=== PATIENT | female | born 1990 | race American Indian/Alaskan Native ===

== ENCOUNTER 2020-12-30 21:47 | Inpatient (IN) | payer OTHER ==
[2020-12-30 23:13] LABS: Basophils % (Auto) 0.1 % (0.0-1.8); Hematocrit 33.2 % (30.3-42.9); Hemoglobin 10.2 gm/dl (10.1-14.3); Lymphocytes % (Auto) 14.1 % (13.4-35.0); Mean Corpuscular HGB Conc 31 % (30-34); Monocytes # (Auto) 0.2 K/mm3 (0.0-0.8); Monocytes % (Auto) 2.7 % (0.0-7.3); Platelet Count 246 K/mm3 (140-440)
[2020-12-30 23:14] LABS: Mean Corpuscular Volume 64 fl (79-97); Red Cell Distribution Width 20.7 % (13.2-15.2)
[2020-12-30] MEDS ORDERED: ACETAMINOPHEN 500 MG TAB PO ONE (23:17)
--- NOTE | 2020-12-30 23:21 | Emergency Department Report ---
ED General Adult HPI - General Chief complaint: Nausea/Vomiting/Diarrhea Stated complaint: FEVER;CHILLS;SOB;BODY ACHES Time Seen by Provider: 12/30/20 22:44 Source: patient Mode of arrival: Ambulatory Limitations: No Limitations - History of Present Illness Initial comments: 30-year-old female, no past medical history, presents to ED with 1 week history fever, vomiting, diarrhea, fatigue. Patient reports she developed shortness of breath 4 days ago. She reports associated slight cough, body aches, and slight loss of smell. Patient states she became dizzy and passed out 2 days ago. Patient states she was tested for COVID-19 2 weeks ago because her was feeling sick. Patient states 2 weeks ago they both tested negative. Patient has not been tested again since the onset of her symptoms. She states her is no longer symptomatic. She reports no known contact with anyone who has tested positive for COVID-19. -: week(s) (1) Consistency: constant Improves with: none Worsens with: none Associated Symptoms: cough, fever/chills, nausea/vomiting, shortness of breath, syncope, weakness. denies: chest pain - Related Data Home Medications Medication Instructions Recorded Confirmed Last Taken Sertraline [Zoloft] 100 mg PO QDAY 12/31/20 12/31/20 Unknown Allergies Allergy/AdvReac Type Severity Reaction Status Date / Time No Known Allergies Allergy Verified 12/31/20 02:45 ED Review of Systems ROS: Stated complaint: FEVER;CHILLS;SOB;BODY ACHES Other details as noted in HPI Comment: All other systems reviewed and negative Constitutional: fever ENT: other (Slight loss of smell reported) Respiratory: cough, shortness of breath Cardiovascular: denies: chest pain Gastrointestinal: vomiting, diarrhea Musculoskeletal: myalgia ED Past Medical Hx - Past Medical History Previous Medical History?: Yes Additional medical history: Hyperthyroidism, iodine radiation treatment - Surgical History Past Surgical History?: No - Social History Smoking Status: Never Smoker Substance Use Type: None - Medications Home Medications: Home Medications Medication Instructions Recorded Confirmed Last Taken Type Sertraline [Zoloft] 100 mg PO QDAY 12/31/20 12/31/20 Unknown History ED Physical Exam - General Limitations: No Limitations General appearance: alert, in no apparent distress, obese - Head Head exam: Present: atraumatic, normocephalic - Eye Eye exam: Present: normal appearance, EOMI - ENT ENT exam: Present: mucous membranes moist - Neck Neck exam: Present: normal inspection - Respiratory Respiratory exam: Present: normal lung sounds bilaterally. Absent: respiratory distress - Cardiovascular Cardiovascular Exam: Present: normal rhythm, tachycardia - GI/Abdominal GI/Abdominal exam: Present: soft. Absent: distended, tenderness - Extremities Exam Extremities exam: Present: normal inspection - Neurological Exam Neurological exam: Present: alert, oriented X3 - Psychiatric Psychiatric exam: Present: normal affect, normal mood - Skin Skin exam: Present: warm, dry, intact, normal color ED Course Vital Signs 12/30/20 12/30/20 12/31/20 21:53 23:40 00:40 Temperature 103.0 F H Pulse Rate 110 H Respiratory 16 16 16 Rate Blood Pressure 119/61 Blood Pressure [Left] O2 Sat by Pulse 94 Oximetry 12/31/20 02:24 Temperature 98.9 F Pulse Rate 114 H Respiratory 24 Rate Blood Pressure Blood Pressure 114/62 [Left] O2 Sat by Pulse 100 Oximetry - Reevaluation(s) Reevaluation #1: 12/31/20 00:10 Pt 91% on RA. O2 sats drop to 86% w/ ambulation. ED Medical Decision Making - Lab Data Result diagrams: 12/30/20 22:38 12/31/20 00:49 - EKG Data -: EKG Interpreted by Mn EKG shows normal: sinus rhythm, axis, intervals, QRS complexes, ST-T waves Rate: tachycardia (rate 126) - EKG Data Interpretation: no acute changes - Radiology Data Radiology results: report reviewed, image reviewed - Medical Decision Making 30-year-old female presents to ED with Covid-like symptoms. Patient complaining of shortness of breath. O2 sats 91% on room air. Saturations dropped to 86% with ambulation. Chest x-ray shows bilateral infiltrates. CTA chest is negative for PE. Blood cultures drawn. Patient given Rocephin, azithromycin, and Decadron. Patient will be admitted to hospitalist, Dr. Alfonso, for further management. - Differential Diagnosis COVID-19, pneumonia, PE Critical Care Time: Yes Critical care time in (mins) excluding proc time.: 35 Critical care attestation.: If time is entered above; I have spent that time in minutes in the direct care of this critically ill patient, excluding procedure time. Critical Care Time: 35 min ED Disposition Clinical Impression: Pneumonia, Sepsis, Acute respiratory failure with hypoxia, Suspected 2019 novel coronavirus infection Disposition: 09 OP ADMIT IP TO THIS HOSP Is pt being admited?: Yes Condition: Stable Time of Disposition: 01:57
[2020-12-30 23:24] LABS: Alanine Aminotransferase 12 units/L (7-56); Albumin 3.7 g/dL (3.9-5); BUN/Creatinine Ratio 8; Blood Urea Nitrogen 7 mg/dL (7-17); Calcium 7.7 mg/dL (8.4-10.2); Hemolysis Index 18
--- NOTE | 2020-12-31 00:12 | XRay Report ---
CHEST 1 VIEW 12/30/2020 11:36 PM INDICATION / CLINICAL INFORMATION: sob. COMPARISON: None available. FINDINGS: SUPPORT DEVICES: None. HEART / MEDIASTINUM: No significant abnormality. LUNGS / PLEURA: Moderate bilateral multifocal airspace consolidation No pneumothorax. ADDITIONAL FINDINGS: No significant additional findings. IMPRESSION: 1. Bilateral pneumonia Signer Name: Kit Avalos MD Signed: 12/31/2020 12:07 AM Workstation Name: [id number]
[2020-12-31] MEDS ORDERED: cefTRIAXone/NS 1 GM/50 ML 1 GM/50 ML BAG IV ONE (00:30)
[2020-12-31] MEDS ORDERED: AZITHROMYCIN 250 MG TAB PO ONE (00:30)
[2020-12-31] MEDS ORDERED: DEXAMETHASONE 4 MG TAB PO ONE (00:32)
[2020-12-31 00:42] LABS: Partial Thromboplastin Time 28.3 Sec. (24.2-36.6)
[2020-12-31 01:22] LABS: C-Reactive Protein 4.4 mg/dL (0.00-1.30)
--- NOTE | 2020-12-31 01:54 | Cat Scan Report ---
CTA CHEST WITH IV CONTRAST INDICATION: SOB, suspected COVID. TECHNIQUE: Axial CT images were obtained through the chest after injection of 100 cc Omni 350 IV contrast. 3 vadim ne MIP reconstructions were produced. All CT scans at this location are performed using CT dose reduc tion for ALARA by means of automated exposure control. COMPARISON: None available. FINDINGS: Study limited secondary to enlarged body habitus, motion artifact. PULMONARY ARTERIES: No pulmonary emboli. THORACIC AORTA: No acute abnormality. HEART: Normal. CORONARY ARTERIES: No significant calcification. PLEURA: No pleural effusion. No pneumothorax. LYMPH NODES: No significant adenopathy. LUNGS: Moderate multifocal patchy parenchymal disease characteristic for Covid pneumonia ADDITIONAL FINDINGS: None. UPPER ABDOMEN: No acute findings. SKELETAL STRUCTURES: No significant osseous abnormality. IMPRESSION: 1. No CT evidence for pulmonary embolism. 2. Moderate bilateral Covid pneumonia Signer Name: Kit Avalos MD Signed: 12/31/2020 1:50 AM Workstation Name: [id number]
[2020-12-31] MEDS ORDERED: ONDANSETRON 4 MG/2 ML INJ IV PRN (02:41)
--- NOTE | 2020-12-31 02:46 | History and Physical Report ---
History of Present Illness Date of examination: 12/31/20 Date of admission: 12/31/20 01:58 Chief complaint: Nausea vomiting diarrhea Shortness of breath History of present illness: 30-year-old female with no significant past medical history was brought to the emergency room because of 1 week history fever, vomiting, diarrhea, fatigue. Patient also complaining of shortness of breath 4 days ago. She reports associated slight cough, body aches, and slight loss of smell. Patient states she became dizzy and passed out 2 days ago. Patient states she was tested for COVID-19 2 weeks ago because her was feeling sick. Patient states 2 weeks ago they both tested negative. Patient has not been tested again since the onset of her symptoms. She states her is no longer symptomatic. She reports no known contact with anyone who has tested positive for COVID-19. In the emergency room patient chest x-ray shows bilateral pneumonia Medications and Allergies Allergies Allergy/AdvReac Type Severity Reaction Status Date / Time No Known Allergies Allergy Unverified 12/30/20 22:05 Active Meds: Active Medications Dexamethasone (Dexamethasone 4 Mg/Ml Vial) 6 mg IV DAILY RAO Famotidine (Famotidine 20 Mg Tab) 20 mg PO BID RAO Heparin Sodium (Porcine) (Heparin 5,000 Unit/1 Ml Vial) 5,000 unit SUB-Q Q8HR [facility]O Ceftriaxone Sodium (Rocephin/Ns 2 Gm/100 Ml) 2 gm in 100 mls @ 200 mls/hr IV Q24H [facility]; Protocol Azithromycin (Zithromax/Ns) 500 mg in 250 mls @ 250 mls/hr IV Q24H [facility]; Protocol Ondansetron HCl (Ondansetron 4 Mg/2 Ml Inj) 4 mg IV Q8H PRN PRN Reason: Nausea And Vomiting Review of Systems Respiratory: cough, shortness of breath Gastrointestinal: nausea, vomiting, diarrhea Exam - Constitutional Vitals: Temp Pulse Resp BP Pulse Ox 98.9 F 114 H 24 114/62 100 12/31/20 02:24 12/31/20 02:24 12/31/20 02:24 12/31/20 02:24 12/31/20 02:24 General appearance: Present: no acute distress, well-nourished - EENT Eyes: Present: PERRL ENT: hearing intact, clear oral mucosa - Neck Neck: Present: supple, normal ROM - Respiratory Respiratory effort: normal Respiratory: bilateral: diminished - Cardiovascular Heart Sounds: Present: S1 & S2. Absent: rub, click - Extremities Extremities: pulses symmetrical, No edema Peripheral Pulses: within normal limits - Abdominal General gastrointestinal: Present: soft, non-tender, non-distended, normal bowel sounds Female genitourinary: Present: normal - Integumentary Integumentary: Present: clear, warm, dry - Musculoskeletal Musculoskeletal: gait normal, strength equal bilaterally - Psychiatric Psychiatric: appropriate mood/affect, intact judgment & insight - Neurologic Neurologic: CNII-XII intact, moves all extremities Results - Labs CBC & Chem 7: 12/30/20 22:38 12/31/20 00:49 Labs: Laboratory Last Values WBC 6.9 K/mm3 (4.5-11.0) 12/30/20 22:38 RBC 5.20 M/mm3 (3.65-5.03) H 12/30/20 22:38 Hgb 10.2 gm/dl (10.1-14.3) 12/30/20 22:38 Hct 33.2 % (30.3-42.9) 12/30/20 22:38 MCV 64 fl (79-97) L 12/30/20 22:38 MCH 20 pg (28-32) L 12/30/20 22:38 MCHC 31 % (30-34) 12/30/20 22:38 RDW 20.7 % (13.2-15.2) H 12/30/20 22:38 Plt Count 246 K/mm3 (140-440) 12/30/20 22:38 Lymph % (Auto) 14.1 % (13.4-35.0) 12/30/20 22:38 [place] % (Auto) 2.7 % (0.0-7.3) 12/30/20 22:38 Eos % (Auto) 0.0 % (0.0-4.3) 12/30/20 22:38 Baso % (Auto) 0.1 % (0.0-1.8) 12/30/20 22:38 Lymph # (Auto) 1.0 K/mm3 (1.2-5.4) L 12/30/20 22:38 [place] # (Auto) 0.2 K/mm3 (0.0-0.8) 12/30/20 22:38 Eos # (Auto) 0.0 K/mm3 (0.0-0.4) 12/30/20 22:38 Baso # (Auto) 0.0 K/mm3 (0.0-0.1) 12/30/20 22:38 Seg Neutrophils % 83.1 % (40.0-70.0) H 12/30/20 22:38 Seg Neutrophils # 5.8 K/mm3 (1.8-7.7) 12/30/20 22:38 PT 13.0 Sec. (12.2-14.9) 12/31/20 00:04 INR 1.00 (0.87-1.13) 12/31/20 00:04 APTT 28.3 Sec. (24.2-36.6) 12/31/20 00:04 D-Dimer 485.77 ng/mlDDU (0-234) H 12/31/20 00:49 Sodium 135 mmol/L (137-145) L 12/30/20 22:38 Potassium 4.1 mmol/L (3.6-5.0) 12/30/20 22:38 Chloride 98.8 mmol/L (98-107) 12/30/20 22:38 Carbon Dioxide 23 mmol/L (22-30) 12/30/20 22:38 Anion Gap 17 mmol/L 12/30/20 22:38 BUN 7 mg/dL (7-17) 12/30/20 22:38 Creatinine 0.9 mg/dL (0.6-1.2) 12/30/20 22:38 Estimated GFR > 60 ml/min 12/30/20 22:38 BUN/Creatinine Ratio 8 % 12/30/20 22:38 Glucose 133 mg/dL (65-100) H 12/31/20 00:49 Lactic Acid 1.20 mmol/L (0.7-2.0) 12/31/20 00:49 Calcium 7.7 mg/dL (8.4-10.2) L 12/30/20 22:38 Ferritin 42.5 ng/mL (10.0-200.0) 12/31/20 00:49 Total Bilirubin 0.20 mg/dL (0.1-1.2) 12/30/20 22:38 AST 29 units/L (5-40) 12/30/20 22:38 ALT 12 units/L (7-56) 12/30/20 22:38 Alkaline Phosphatase 65 units/L (35-129) 12/30/20 22:38 Lactate Dehydrogenase 286 units/L (91-180) H 12/31/20 00:49 C-Reactive Protein 4.40 mg/dL (0.00-1.30) H 12/31/20 00:49 Total Protein 7.5 g/dL (6.3-8.2) 12/30/20 22:38 Albumin 3.7 g/dL (3.9-5) L 12/30/20 22:38 Albumin/Globulin Ratio 1.0 % 12/30/20 22:38 Lipase 21 units/L (13-60) 12/30/20 22:38 HCG, Qual Negative (Negative) 12/30/20 22:38 Microbiology: Microbiology 12/31/20 00:49 Peripheral/Venous Blood Culture - Preliminary Culture in Progress 12/31/20 00:38 Peripheral/Venous Blood Culture - Preliminary Culture in Progress - Imaging and Cardiology Chest x-ray: image reviewed CT scan - chest: image reviewed Assessment and Plan - Patient Problems (1) Suspected 2019 novel coronavirus infection Current Visit: Yes Status: Acute Plan to address problem: Admit the patient to the medical floor telemetry. Put the patient on isolation. Rocephin 1 g IV daily and Zithromax 500 mg IV daily. DuoNeb by nebulizer every 4 hours as needed. Decadron 6 mg IV daily. Will consult ID for further evaluation and treatment. We will follow the Covid inflammatory marker. Blood cultures sputum culture. Recheck CBC BMP in the morning. Heparin 5000 units subcu every 8 hours for DVT prophylaxis and Pepcid 20 mg p.o. twice daily for GI prophylaxis. Patient is a full code (2) Pneumonia Current Visit: Yes Status: Acute Plan to address problem: Oxygen by nasal cannula 3 L/min. Rocephin 1 g IV daily and Zithromax 500 mg IV daily. DuoNeb by nebulizer every 4 hours as needed. Decadron 6 mg IV daily. Will consult ID for further evaluation and treatment. We will follow the Covid inflammatory marker. Blood cultures sputum culture. Recheck CBC BMP in the morning. (3) Nausea vomiting and diarrhea Current Visit: Yes Status: Acute Plan to address problem: Pepcid 20 mg p.o. twice daily. Zofran 4 mg IV every 6 hours as needed. We will monitor the patient closely. (4) DVT prophylaxis Current Visit: Yes Status: Acute Plan to address problem: Heparin 5000 units subcu every 8 hours for DVT prophylaxis.
[2020-12-31 04:14] LABS: Bacteria,Urine 1+ /HPF (Negative); Bilirubin,Urine NEG (Negative); Blood,Urine LG (Negative); Color,Urine Yellow (Yellow); Protein,Urine <15 mg/dL mg/dL (Negative); Urobilinogen,Urine < 2.0 mg/dL (<2.0)
[2020-12-31] MEDS: HEPARIN 5,000 UNIT/1 ML VIAL SUB-Q SCH ×4 (05:16→21:11)
[2020-12-31] MEDS: FAMOTIDINE 20 MG TAB PO SCH ×2 (09:00→21:11)
--- NOTE | 2020-12-31 09:58 | Progress Note ---
Hospitalist Physical - Constitutional Vitals: Temp Pulse Resp BP Pulse Ox 98.1 F 114 H 20 127/71 93 12/31/20 04:49 12/31/20 04:49 12/31/20 04:49 12/31/20 04:49 12/31/20 04:49 General appearance: Present: no acute distress, well-nourished Results - Labs CBC & Chem 7: 12/30/20 22:38 12/31/20 00:49 Labs: Laboratory Last Values WBC 6.9 K/mm3 (4.5-11.0) 12/30/20 22:38 RBC 5.20 M/mm3 (3.65-5.03) H 12/30/20 22:38 Hgb 10.2 gm/dl (10.1-14.3) 12/30/20 22:38 Hct 33.2 % (30.3-42.9) 12/30/20 22:38 MCV 64 fl (79-97) L 12/30/20 22:38 MCH 20 pg (28-32) L 12/30/20 22:38 MCHC 31 % (30-34) 12/30/20 22:38 RDW 20.7 % (13.2-15.2) H 12/30/20 22:38 Plt Count 246 K/mm3 (140-440) 12/30/20 22:38 Lymph % (Auto) 14.1 % (13.4-35.0) 12/30/20 22:38 [place] % (Auto) 2.7 % (0.0-7.3) 12/30/20 22:38 Eos % (Auto) 0.0 % (0.0-4.3) 12/30/20 22:38 Baso % (Auto) 0.1 % (0.0-1.8) 12/30/20 22:38 Lymph # (Auto) 1.0 K/mm3 (1.2-5.4) L 12/30/20 22:38 [place] # (Auto) 0.2 K/mm3 (0.0-0.8) 12/30/20 22:38 Eos # (Auto) 0.0 K/mm3 (0.0-0.4) 12/30/20 22:38 Baso # (Auto) 0.0 K/mm3 (0.0-0.1) 12/30/20 22:38 Seg Neutrophils % 83.1 % (40.0-70.0) H 12/30/20 22:38 Seg Neutrophils # 5.8 K/mm3 (1.8-7.7) 12/30/20 22:38 PT 13.0 Sec. (12.2-14.9) 12/31/20 00:04 INR 1.00 (0.87-1.13) 12/31/20 00:04 APTT 28.3 Sec. (24.2-36.6) 12/31/20 00:04 D-Dimer 485.77 ng/mlDDU (0-234) H 12/31/20 00:49 Sodium 135 mmol/L (137-145) L 12/30/20 22:38 Potassium 4.1 mmol/L (3.6-5.0) 12/30/20 22:38 Chloride 98.8 mmol/L (98-107) 12/30/20 22:38 Carbon Dioxide 23 mmol/L (22-30) 12/30/20 22:38 Anion Gap 17 mmol/L 12/30/20 22:38 BUN 7 mg/dL (7-17) 12/30/20 22:38 Creatinine 0.9 mg/dL (0.6-1.2) 12/30/20 22:38 Estimated GFR > 60 ml/min 12/30/20 22:38 BUN/Creatinine Ratio 8 % 12/30/20 22:38 Glucose 133 mg/dL (65-100) H 12/31/20 00:49 Lactic Acid 1.20 mmol/L (0.7-2.0) 12/31/20 00:49 Calcium 7.7 mg/dL (8.4-10.2) L 12/30/20 22:38 Ferritin 42.5 ng/mL (10.0-200.0) 12/31/20 00:49 Total Bilirubin 0.20 mg/dL (0.1-1.2) 12/30/20 22:38 AST 29 units/L (5-40) 12/30/20 22:38 ALT 12 units/L (7-56) 12/30/20 22:38 Alkaline Phosphatase 65 units/L (35-129) 12/30/20 22:38 Lactate Dehydrogenase 286 units/L (91-180) H 12/31/20 00:49 C-Reactive Protein 4.40 mg/dL (0.00-1.30) H 12/31/20 00:49 Total Protein 7.5 g/dL (6.3-8.2) 12/30/20 22:38 Albumin 3.7 g/dL (3.9-5) L 12/30/20 22:38 Albumin/Globulin Ratio 1.0 % 12/30/20 22:38 Lipase 21 units/L (13-60) 12/30/20 22:38 HCG, Qual Negative (Negative) 12/30/20 22:38 Urine Color Yellow (Yellow) 12/30/20 Unknown Urine Turbidity Slightly-cloudy (Clear) 12/30/20 Unknown Urine pH 6.0 (5.0-7.0) 12/30/20 Unknown Ur Specific [place] 1.054 (1.003-1.030) H 12/30/20 Unknown Urine Protein <15 mg/dl mg/dL (Negative) 12/30/20 Unknown Urine Glucose (UA) Neg mg/dL (Negative) 12/30/20 Unknown Urine Ketones Neg mg/dL (Negative) 12/30/20 Unknown Urine Blood Lg (Negative) 12/30/20 Unknown Urine Nitrite Neg (Negative) 12/30/20 Unknown Urine Bilirubin Neg (Negative) 12/30/20 Unknown Urine Urobilinogen < 2.0 mg/dL (<2.0) 12/30/20 Unknown Ur Leukocyte Esterase Neg (Negative) 12/30/20 Unknown Urine WBC (Auto) 3.0 /HPF (0.0-6.0) 12/30/20 Unknown Urine RBC (Auto) 9.0 /HPF (0.0-6.0) 12/30/20 Unknown U Epithel Cells (Auto) 11.0 /HPF (0-13.0) 12/30/20 Unknown Urine Bacteria (Auto) 1+ /HPF (Negative) 12/30/20 Unknown Microbiology: Microbiology 12/31/20 00:49 Peripheral/Venous Blood Culture - Preliminary Culture in Progress 12/31/20 00:38 Peripheral/Venous Blood Culture - Preliminary Culture in Progress Renae/IV: Voiding Method Toilet Active Medications - Current Medications Current Medications: Generic Name Dose Route Start Last Admin Trade Name Freq PRN Reason Stop Dose Admin Dexamethasone 6 mg 12/31/20 22:00 Dexamethasone 4 Mg/Ml Vial IV 01/09/21 22:01 DAILY@2200 [facility] Famotidine 20 mg 12/31/20 10:00 12/31/20 09:00 Famotidine 20 Mg Tab PO 20 mg BID RAO Administration Heparin Sodium (Porcine) 5,000 unit 12/31/20 06:00 12/31/20 05:30 Heparin 5,000 Unit/1 Ml Vial SUB-Q 5,000 unit Q8HR [facility] Administration Ceftriaxone Sodium 2 gm in 100 mls @ 200 mls/hr 12/31/20 22:00 Rocephin/Ns 2 Gm/100 Ml IV Q24H [facility] Protocol Azithromycin 500 mg in 250 mls @ 250 mls/hr 12/31/20 22:00 Zithromax/Ns IV Q24H [facility] Protocol Ondansetron HCl 4 mg 12/31/20 02:41 Ondansetron 4 Mg/2 Ml Inj IV Q8H PRN Nausea And Vomiting Sertraline HCl 100 mg 12/31/20 10:00 Sertraline 100 Mg Tab PO QDAY [facility]
--- NOTE | 2020-12-31 11:14 | Event Note ---
Date: 12/31/20 Patient seen and examined, still with shortness of breath, generalized body pain. Will continue current therapy, await covid testing. start home zoloft med, patient confirms. will check room air oxygen
[2020-12-31] MEDS ORDERED: FLU VACC QUAD 2020-2021 (6 months +)/PF 60 0.5 ML SYRINGE IM ONE (12:00)
[2020-12-31] MEDS: SERTRALINE 100 MG TAB PO SCH (12:37)
--- NOTE | 2020-12-31 15:07 | Consultation ---
History of Present Illness - Reason for Consult Consult date: 12/31/20 - History of Present Illness 30-year-old female no past medical history came to the emergency room complaining of fevers, GI upset, fatigue. This began approximately a week prior to admission and is associated with 4 days of shortness of breath. She also complains of cough, myalgias, anosmia. She notes a negative Covid test 2 weeks prior, and that her was symptomatic but also tested negative. Febrile on admission to 103 with a white count of 6.9. Normal renal function. Covid testing pending. Blood cultures no growth to date. Currently on ceftriaxone and azithromycin. Imaging personally reviewed: Chest CTA: No evidence of pulmonary embolism, moderate bilateral pneumonia. Review of systems: Deferred due to PPE conservation strategy. Past History Past Medical History: No medical history Past Surgical History: No surgical history Social history: no significant social history Family history: no significant family history Medications and Allergies Allergies Allergy/AdvReac Type Severity Reaction Status Date / Time No Known Allergies Allergy Verified 12/31/20 02:45 Home Medications Medication Instructions Recorded Confirmed Last Taken Type Sertraline [Zoloft] 100 mg PO QDAY 12/31/20 12/31/20 Unknown History Active Meds: Active Medications Dexamethasone (Dexamethasone 4 Mg/Ml Vial) 6 mg IV DAILY@2200 [facility] Stop: 01/09/21 22:01 Famotidine (Famotidine 20 Mg Tab) 20 mg PO BID [facility] Last Admin: 12/31/20 09:00 Dose: 20 mg Documented by: Heparin Sodium (Porcine) (Heparin 5,000 Unit/1 Ml Vial) 5,000 unit SUB-Q Q8HR [facility] Last Admin: 12/31/20 05:30 Dose: 5,000 unit Documented by: Ceftriaxone Sodium (Rocephin/Ns 2 Gm/100 Ml) 2 gm in 100 mls @ 200 mls/hr IV Q24H [facility]; Protocol Azithromycin (Zithromax/Ns) 500 mg in 250 mls @ 250 mls/hr IV Q24H [facility]; Pro tocol Ondansetron HCl (Ondansetron 4 Mg/2 Ml Inj) 4 mg IV Q8H PRN PRN Reason: Nausea And Vomiting Sertraline HCl (Sertraline 100 Mg Tab) 100 mg PO QDAY [facility] Last Admin: 12/31/20 12:37 Dose: 100 mg Documented by: Physical Examination - Physical Exam Narrative exam: Physical exam deferred due to PPE conservation strategy. Please refer to primary team's note. - Constitutional Vitals: Vital Signs Temp Pulse Resp BP Pulse Ox 99.3 F 116 H 16 127/79 94 12/31/20 12:05 12/31/20 12:05 12/31/20 12:05 12/31/20 12:05 12/31/20 12:05 Temperature -Last 24 Hours Temperature 99.3 F Temperature 98.1 F Temperature 98.9 F Temperature 103.0 F Results - Labs CBC & Chem 7: 12/30/20 22:38 12/31/20 00:49 Labs: Abnormal lab results 12/30/20 12/30/20 12/30/20 Range/Units 22:38 22:38 Unknown RBC 5.20 H (3.65-5.03) M/mm3 MCV 64 L (79-97) fl MCH 20 L (28-32) pg RDW 20.7 H (13.2-15.2) % Lymph # (Auto) 1.0 L (1.2-5.4) K/mm3 Seg Neutrophils % 83.1 H (40.0-70.0) % D-Dimer (0-234) ng/mlDDU Sodium 135 L (137-145) mmol/L Glucose 142 H (65-100) mg/dL Calcium 7.7 L (8.4-10.2) mg/dL Lactate Dehydrogenase (91-180) units/L C-Reactive Protein (0.00-1.30) mg/dL Albumin 3.7 L (3.9-5) g/dL Ur Specific [place] 1.054 H (1.003-1.030) Coronavirus (PCR) (Negative) 12/31/20 12/31/20 12/31/20 Range/Units 00:04 00:49 00:49 RBC (3.65-5.03) M/mm3 MCV (79-97) fl MCH (28-32) pg RDW (13.2-15.2) % Lymph # (Auto) (1.2-5.4) K/mm3 Seg Neutrophils % (40.0-70.0) % D-Dimer 458.81 H 485.77 H (0-234) ng/mlDDU Sodium (137-145) mmol/L Glucose 133 H (65-100) mg/dL Calcium (8.4-10.2) mg/dL Lactate Dehydrogenase 286 H (91-180) units/L C-Reactive Protein 4.40 H (0.00-1.30) mg/dL Albumin (3.9-5) g/dL Ur Specific [place] (1.003-1.030) Coronavirus (PCR) (Negative) 12/31/20 Range/Units Unknown RBC (3.65-5.03) M/mm3 MCV (79-97) fl MCH (28-32) pg RDW (13.2-15.2) % Lymph # (Auto) (1.2-5.4) K/mm3 Seg Neutrophils % (40.0-70.0) % D-Dimer (0-234) ng/mlDDU Sodium (137-145) mmol/L Glucose (65-100) mg/dL Calcium (8.4-10.2) mg/dL Lactate Dehydrogenase (91-180) units/L C-Reactive Protein (0.00-1.30) mg/dL Albumin (3.9-5) g/dL Ur Specific [place] (1.003-1.030) Coronavirus (PCR) Positive A (Negative) Assessment and Plan Cultures: Blood culture pending A/P: 21-year-old female past medical history morbid obesity admitted with bilateral pneumonia #Bilateral pneumonia: Likely Covid, awaiting testing. #Morbid obesity Recs: -Follow-up COVID-19 PCR -Can continue dexamethasone for now, stop if Covid negative. -Follow-up procalcitonin, stop ceftriaxone and azithromycin if less than 0.25 -If Covid positive and requiring supplemental oxygen okay to start remdesivir. -Anticoagulation per hospital protocol Thank you for the consult, we will continue to follow. Yajaira Whitaker MD [facility] O: [phone] F: [phone]
[2020-12-31] MEDS ORDERED: ACETAMINOPHEN 325 MG TAB PO PRN (21:55)
[2020-12-31] MEDS ORDERED: dexAMETHasone 4 MG/ML VIAL IV SCH (22:00)
[2020-12-31] MEDS ORDERED: AZITHROMYCIN/NS 500 MG/250 ML 500 MG/250 ML BAG IV SCH (22:00)
[2020-12-31] MEDS ORDERED: cefTRIAXone/NS 2 GM/100 ML 2 GM/100 ML BAG IV SCH (22:00)
[2021-01-01] MEDS: HEPARIN 5,000 UNIT/1 ML VIAL SUB-Q SCH ×3 (05:45→21:58)
[2021-01-01 06:43] LABS: Basophils % (Auto) 0.3 % (0.0-1.8); Lymphocytes # (Auto) 0.9 K/mm3 (1.2-5.4); Lymphocytes % (Auto) 12.7 % (13.4-35.0); Mean Corpuscular HGB Conc 30 % (30-34); Monocytes # (Auto) 0.2 K/mm3 (0.0-0.8); Monocytes % (Auto) 3.2 % (0.0-7.3); Platelet Count 282 K/mm3 (140-440); Red Blood Count 5.22 M/mm3 (3.65-5.03)
[2021-01-01 06:44] LABS: Hematocrit 33.2 % (30.3-42.9); Mean Corpuscular Volume 64 fl (79-97); Red Cell Distribution Width 21.2 % (13.2-15.2)
[2021-01-01 06:55] LABS: Blood Urea Nitrogen 9 mg/dL (7-17); Hemolysis Index 2
[2021-01-01 06:56] LABS: BUN/Creatinine Ratio 15
[2021-01-01] MEDS: SODIUM CHLORIDE 0.9% 50 ML IVPB IV SCH (09:16)
[2021-01-01] MEDS: FAMOTIDINE 20 MG TAB PO SCH ×2 (09:16→21:58)
[2021-01-01] MEDS: SERTRALINE 100 MG TAB PO SCH (09:20)
[2021-01-01] MEDS ORDERED: REMDESIVIR 100 MG VIAL IV ONE (10:00)
[2021-01-01] MEDS ORDERED: REMDESIVIR 200 MG in SODIUM CHLORIDE 0.9% 250ML 250 ML IV ONE ×2 (10:00→11:40)
--- NOTE | 2021-01-01 10:44 | Progress Note ---
Assessment and Plan Assessment and plan: 30-year-old female with no significant past medical history was brought to the emergency room because of 1 week history fever, vomiting, diarrhea, fatigue. Patient also complaining of shortness of breath 4 days ago. She reports associated slight cough, body aches, and slight loss of smell. Patient states she became dizzy and passed out 2 days ago. Patient states she was tested for COVID-19 2 weeks ago because her was feeling sick. Patient states 2 weeks ago they both tested negative. Patient has not been tested again since the onset of her symptoms. She states her is no longer symptomatic. She reports no known contact with anyone who has tested positive for COVID-19. In the emergency room patient chest x-ray shows bilateral pneumonia 01/01: Continue supportive care, now on Dexamethazone, Continue remdesivir, Vitamin C, zinc, vitamin D, wean oxygen as tolerated. IS x10 daily. (1) 2019 novel coronavirus infection Current Visit: Yes Status: Acute Plan to address problem: Admit the patient to the medical floor telemetry. Put the patient on isolation. Rocephin 1 g IV daily and Zithromax 500 mg IV daily. DuoNeb by nebulizer every 4 hours as needed. Decadron 6 mg IV daily. Will consult ID for further evaluation and treatment. We will follow the Covid inflammatory marker. Blood cultures sputum culture. Recheck CBC BMP in the morning. Heparin 5000 units subcu every 8 hours for DVT prophylaxis and Pepcid 20 mg p.o. twice daily for GI prophylaxis. Patient is a full code (2) Pneumonia Current Visit: Yes Status: Acute Plan to address problem: Oxygen by nasal cannula 3 L/min. Rocephin 1 g IV daily and Zithromax 500 mg IV daily. DuoNeb by nebulizer every 4 hours as needed. Decadron 6 mg IV daily. Will consult ID for further evaluation and treatment. We will follow the Covid inflammatory marker. Blood cultures sputum culture. Recheck CBC BMP in the morning. (3) Nausea vomiting and diarrhea Current Visit: Yes Status: Acute Plan to address problem: Pepcid 20 mg p.o. twice daily. Zofran 4 mg IV every 6 hours as needed. We will monitor the patient closely. (4) Morbid Obesity (5) DVT prophylaxis Current Visit: Yes Status: Acute Plan to address problem: Heparin 5000 units subcu every 8 hours for DVT prophylaxis. History Interval history: Patient seen and examined, reports slight improvement. Hospitalist Physical - Physical exam Narrative exam: General appearance: Present: no acute distress, well-nourished. Morbid obesity - EENT Eyes: Present: PERRL ENT: hearing intact, clear oral mucosa - Neck Neck: Present: supple, normal ROM - Respiratory Respiratory effort: normal Respiratory: bilateral: diminished - Cardiovascular Heart Sounds: Present: S1 & S2. Absent: rub, click - Extremities Extremities: pulses symmetrical, No edema Peripheral Pulses: within normal limits - Abdominal General gastrointestinal: Present: soft, non-tender, non-distended, normal bowel sounds Female genitourinary: Present: normal - Integumentary Integumentary: Present: clear, warm, dry - Musculoskeletal Musculoskeletal: gait normal, strength equal bilaterally - Psychiatric Psychiatric: appropriate mood/affect, intact judgment & insight - Neurologic Neurologic: CNII-XII intact, moves all extremities - Constitutional Vitals: Temp Pulse Resp BP Pulse Ox 98.4 F 82 18 126/77 93 01/01/21 04:09 01/01/21 04:09 01/01/21 04:09 01/01/21 04:09 01/01/21 04:09 General appearance: Present: no acute distress, well-nourished Results - Labs CBC & Chem 7: 01/01/21 04:25 01/01/21 04:25 Labs: Laboratory Last Values WBC 6.9 K/mm3 (4.5-11.0) 01/01/21 04:25 RBC 5.22 M/mm3 (3.65-5.03) H 01/01/21 04:25 Hgb 10.0 gm/dl (10.1-14.3) L 01/01/21 04:25 Hct 33.2 % (30.3-42.9) 01/01/21 04:25 MCV 64 fl (79-97) L 01/01/21 04:25 MCH 19 pg (28-32) L 01/01/21 04:25 MCHC 30 % (30-34) 01/01/21 04:25 RDW 21.2 % (13.2-15.2) H 01/01/21 04:25 Plt Count 282 K/mm3 (140-440) 01/01/21 04:25 Lymph % (Auto) 12.7 % (13.4-35.0) L 01/01/21 04:25 [place] % (Auto) 3.2 % (0.0-7.3) 01/01/21 04:25 Eos % (Auto) 0.0 % (0.0-4.3) 01/01/21 04:25 Baso % (Auto) 0.3 % (0.0-1.8) 01/01/21 04:25 Lymph # (Auto) 0.9 K/mm3 (1.2-5.4) L 01/01/21 04:25 [place] # (Auto) 0.2 K/mm3 (0.0-0.8) 01/01/21 04:25 Eos # (Auto) 0.0 K/mm3 (0.0-0.4) 01/01/21 04:25 Baso # (Auto) 0.0 K/mm3 (0.0-0.1) 01/01/21 04:25 Seg Neutrophils % 83.8 % (40.0-70.0) H 01/01/21 04:25 Seg Neutrophils # 5.7 K/mm3 (1.8-7.7) 01/01/21 04:25 PT 13.0 Sec. (12.2-14.9) 12/31/20 00:04 INR 1.00 (0.87-1.13) 12/31/20 00:04 APTT 28.3 Sec. (24.2-36.6) 12/31/20 00:04 D-Dimer 485.77 ng/mlDDU (0-234) H 12/31/20 00:49 Sodium 139 mmol/L (137-145) 01/01/21 04:25 Potassium 4.1 mmol/L (3.6-5.0) 01/01/21 04:25 Chloride 103.0 mmol/L (98-107) 01/01/21 04:25 Carbon Dioxide 26 mmol/L (22-30) 01/01/21 04:25 Anion Gap 14 mmol/L 01/01/21 04:25 BUN 9 mg/dL (7-17) 01/01/21 04:25 Creatinine 0.6 mg/dL (0.6-1.2) 01/01/21 04:25 Estimated GFR > 60 ml/min 01/01/21 04:25 BUN/Creatinine Ratio 15 % 01/01/21 04:25 Glucose 150 mg/dL (65-100) H 01/01/21 04:25 Lactic Acid 1.20 mmol/L (0.7-2.0) 12/31/20 00:49 Calcium 8.0 mg/dL (8.4-10.2) L 01/01/21 04:25 Ferritin 42.5 ng/mL (10.0-200.0) 12/31/20 00:49 Total Bilirubin 0.20 mg/dL (0.1-1.2) 12/30/20 22:38 AST 29 units/L (5-40) 12/30/20 22:38 ALT 12 units/L (7-56) 12/30/20 22:38 Alkaline Phosphatase 65 units/L (35-129) 12/30/20 22:38 Lactate Dehydrogenase 286 units/L (91-180) H 12/31/20 00:49 C-Reactive Protein 4.40 mg/dL (0.00-1.30) H 12/31/20 00:49 Total Protein 7.5 g/dL (6.3-8.2) 12/30/20 22:38 Albumin 3.7 g/dL (3.9-5) L 12/30/20 22:38 Albumin/Globulin Ratio 1.0 % 12/30/20 22:38 Lipase 21 units/L (13-60) 12/30/20 22:38 Procalcitonin 0.07 ng/mL (<0.15) 12/31/20 00:49 HCG, Qual Negative (Negative) 12/30/20 22:38 Urine Color Yellow (Yellow) 12/30/20 Unknown Urine Turbidity Slightly-cloudy (Clear) 12/30/20 Unknown Urine pH 6.0 (5.0-7.0) 12/30/20 Unknown Ur Specific [place] 1.054 (1.003-1.030) H 12/30/20 Unknown Urine Protein <15 mg/dl mg/dL (Negative) 12/30/20 Unknown Urine Glucose (UA) Neg mg/dL (Negative) 12/30/20 Unknown Urine Ketones Neg mg/dL (Negative) 12/30/20 Unknown Urine Blood Lg (Negative) 12/30/20 Unknown Urine Nitrite Neg (Negative) 12/30/20 Unknown Urine Bilirubin Neg (Negative) 12/30/20 Unknown Urine Urobilinogen < 2.0 mg/dL (<2.0) 12/30/20 Unknown Ur Leukocyte Esterase Neg (Negative) 12/30/20 Unknown Urine WBC (Auto) 3.0 /HPF (0.0-6.0) 12/30/20 Unknown Urine RBC (Auto) 9.0 /HPF (0.0-6.0) 12/30/20 Unknown U Epithel Cells (Auto) 11.0 /HPF (0-13.0) 12/30/20 Unknown Urine Bacteria (Auto) 1+ /HPF (Negative) 12/30/20 Unknown Coronavirus (PCR) Positive (Negative) A 12/31/20 Unknown Microbiology: Microbiology 12/31/20 00:49 Peripheral/Venous Blood Culture - Preliminary NO GROWTH AFTER 24 HOURS 12/31/20 00:38 Peripheral/Venous Blood Culture - Preliminary NO GROWTH AFTER 24 HOURS Renae/IV: Voiding Method Toilet Active Medications - Current Medications Current Medications: Generic Name Dose Route Start Last Admin Trade Name Freq PRN Reason Stop Dose Admin Acetaminophen 650 mg 12/31/20 21:55 12/31/20 22:07 Acetaminophen 325 Mg Tab PO 650 mg Q6H PRN Administration Pain, Mild (1-3) Dexamethasone 6 mg 12/31/20 22:00 12/31/20 21:10 Dexamethasone 4 Mg/Ml Vial IV 01/09/21 22:01 6 mg DAILY@2200 RAO Administration Famotidine 20 mg 12/31/20 10:00 01/01/21 09:16 Famotidine 20 Mg Tab PO 20 mg BID RAO Administration Heparin Sodium (Porcine) 5,000 unit 12/31/20 06:00 01/01/21 05:45 Heparin 5,000 Unit/1 Ml Vial SUB-Q 5,000 unit Q8HR RAO Administration REMDESIVIR 100 mg/ Sodium 250 mls @ 500 mls/hr 01/02/21 21:00 Chloride IV 01/05/21 21:29 Q24HR@2100 RAO Ondansetron HCl 4 mg 12/31/20 02:41 Ondansetron 4 Mg/2 Ml Inj IV Q8H PRN Nausea And Vomiting Sertraline HCl 100 mg 12/31/20 11:00 01/01/21 09:20 Sertraline 100 Mg Tab PO 100 mg QDAY RAO Administration Sodium Chloride 50 ml 01/01/21 10:00 01/01/21 09:16 Sodium Chloride 0.9% 50 Ml Ivpb IV 01/05/21 21:01 50 ml Q24HR@2100 RAO Administration
[2021-01-01] MEDS: ASCORBIC ACID 500 MG TAB PO SCH ×2 (11:23→21:58)
[2021-01-01] MEDS: ZINC SULFATE 220 MG CAP PO SCH (11:23)
[2021-01-01] MEDS: CHOLECALCIFEROL (VIT D3) 5,000 UNIT TAB PO SCH (11:24)
--- NOTE | 2021-01-01 11:37 | Progress Note ---
Assessment and Plan Cultures: Blood culture pending COVID-19 positive A/P: 21-year-old female past medical history morbid obesity admitted with bilateral pneumonia #Acute hypoxic respiratory failure: secondary to COVID. On 3L NC. #COVID-19 #Morbid obesity Recs: -Can continue dexamethasone for now, stop if Covid negative. -Normal procalcitonin, stopped ceftriaxone and azithromycin. -Started Remdesivir, day 1 of 5. Monitor renal and hepatic function. -Anticoagulation per hospital protocol -Proning as able. Thank you for the consult, we will continue to follow. Yajaira Whitaker MD [facility] ([facility]) O: [phone] F: [phone] Subjective Date of service: 01/01/21 Interval history: Afebrile, normal white count. Objective - Exam Narrative Exam: Physical exam deferred due to PPE conservation strategy. Please refer to primary team's note. - Constitutional Vitals: Vital Signs Temp Pulse Resp BP Pulse Ox 98.9 F 93 H 16 135/75 97 01/01/21 11:07 01/01/21 11:07 01/01/21 11:07 01/01/21 11:07 01/01/21 11:26 Temperature -Last 24 Hours Temperature 98.9 F Temperature 98.4 F Temperature 99.7 F Temperature 99.5 F Temperature 99.3 F - Labs CBC & Chem 7: 01/01/21 04:25 01/01/21 04:25 Labs: Abnormal lab results 12/31/20 01/01/21 01/01/21 Range/Units Unknown 04:25 04:25 RBC 5.22 H (3.65-5.03) M/mm3 Hgb 10.0 L (10.1-14.3) gm/dl MCV 64 L (79-97) fl MCH 19 L (28-32) pg RDW 21.2 H (13.2-15.2) % Lymph % (Auto) 12.7 L (13.4-35.0) % Lymph # (Auto) 0.9 L (1.2-5.4) K/mm3 Seg Neutrophils % 83.8 H (40.0-70.0) % Glucose 150 H (65-100) mg/dL Calcium 8.0 L (8.4-10.2) mg/dL Coronavirus (PCR) Positive A (Negative)
[2021-01-01] MEDS: DEXAMETHASONE 4 MG TAB PO SCH (12:57)
--- NOTE | 2021-01-01 15:53 | Vascular Lab Report ---
DUPLEX DOPPLER LOWER EXTREMITY VEINS, BILATERAL INDICATION / CLINICAL INFORMATION: Lower extremity pain and swelling. Shortness of breath. COVID suspected. TECHNIQUE: Duplex doppler imaging was performed through the veins of both lower extremities using venous mustapha lashay and other maneuvers. COMPARISON: None available. FINDINGS: RIGHT COMMON FEMORAL VEIN: Negative. RIGHT FEMORAL VEIN: Negative. RIGHT POPLITEAL VEIN: Negative. RIGHT CALF VEINS: Negative. LEFT COMMON FEMORAL VEIN: Negative. LEFT FEMORAL VEIN: Negative. LEFT POPLITEAL VEIN: Negative. LEFT CALF VEINS: Negative. ADDITIONAL FINDINGS: None. IMPRESSION: 1. No sonographic evidence for DVT in either lower extremity. Signer Name: Naveen Griffin MD Signed: 01/01/2021 3:48 PM Workstation Name: [id number]
[2021-01-01] MEDS ORDERED: SODIUM CHLORIDE 0.9% 50 ML IVPB IV SCH (21:00)
[2021-01-02] MEDS: HEPARIN 5,000 UNIT/1 ML VIAL SUB-Q SCH ×3 (05:11→22:20)
[2021-01-02 06:06] LABS: Alanine Aminotransferase 7 units/L (7-56); Albumin 3.5 g/dL (3.9-5); Blood Urea Nitrogen 11 mg/dL (7-17); Calcium 7.6 mg/dL (8.4-10.2); Hemolysis Index 0
[2021-01-02 06:07] LABS: BUN/Creatinine Ratio 18
[2021-01-02] MEDS: DEXAMETHASONE 4 MG TAB PO SCH (09:16)
[2021-01-02] MEDS: CHOLECALCIFEROL (VIT D3) 5,000 UNIT TAB PO SCH (09:17)
[2021-01-02] MEDS: FAMOTIDINE 20 MG TAB PO SCH ×2 (09:17→22:20)
[2021-01-02] MEDS: ASCORBIC ACID 500 MG TAB PO SCH ×2 (09:17→22:20)
[2021-01-02] MEDS: ZINC SULFATE 220 MG CAP PO SCH (09:18)
[2021-01-02] MEDS: SERTRALINE 100 MG TAB PO SCH (09:18)
--- NOTE | 2021-01-02 10:46 | Progress Note ---
Assessment and Plan Assessment and plan: 30-year-old female with no significant past medical history was brought to the emergency room because of 1 week history fever, vomiting, diarrhea, fatigue. Patient also complaining of shortness of breath 4 days ago. She reports associated slight cough, body aches, and slight loss of smell. Patient states she became dizzy and passed out 2 days ago. Patient states she was tested for COVID-19 2 weeks ago because her was feeling sick. Patient states 2 weeks ago they both tested negative. Patient has not been tested again since the onset of her symptoms. She states her is no longer symptomatic. She reports no known contact with anyone who has tested positive for COVID-19. In the emergency room patient chest x-ray shows bilateral pneumonia 01/01: Continue supportive care, now on Dexamethazone, Continue remdesivir, Vitamin C, zinc, vitamin D, wean oxygen as tolerated. IS x10 daily. 01/02: Patient clinically improving. No further nausea vomiting or diarrhea noted today. She is currently on remdesivir as steroids and will continue the same. We will recheck oxygen saturation and possible home O2 eval for anticipation for discharge tomorrow. (1) 2019 novel coronavirus infection Current Visit: Yes Status: Acute Plan to address problem: Admit the patient to the medical floor telemetry. Put the patient on isolation. Rocephin 1 g IV daily and Zithromax 500 mg IV daily. DuoNeb by nebulizer every 4 hours as needed. Decadron 6 mg IV daily. Will consult ID for further ev aluation and treatment. We will follow the Covid inflammatory marker. Blood cultures sputum culture. Recheck CBC BMP in the morning. Heparin 5000 units subcu every 8 hours for DVT prophylaxis and Pepcid 20 mg p.o. twice daily for GI prophylaxis. Patient is a full code (2) Pneumonia Current Visit: Yes Status: Acute Plan to address problem: Oxygen by nasal cannula 3 L/min. Rocephin 1 g IV daily and Zithromax 500 mg IV daily. DuoNeb by nebulizer every 4 hours as needed. Decadron 6 mg IV daily. Will consult ID for further evaluation and treatment. We will follow the Covid inflammatory marker. Blood cultures sputum culture. Recheck CBC BMP in the morning. (3) Nausea vomiting and diarrhea Current Visit: Yes Status: Acute Plan to address problem: Pepcid 20 mg p.o. twice daily. Zofran 4 mg IV every 6 hours as needed. We will monitor the patient closely. (4) Morbid Obesity (5) chronic dizziness (6) DVT prophylaxis Current Visit: Yes Status: Acute Plan to address problem: Heparin 5000 units subcu every 8 hours for DVT prophylaxis. History Interval history: Patient seen and examined, no new complaints today. Overnight reported dizziness but states that she has a history of chronic dizziness. Hospitalist Physical - Physical exam Narrative exam: General appearance: Present: no acute distress, well-nourished. Morbid obesity - EENT Eyes: Present: PERRL ENT: hearing intact, clear oral mucosa - Neck Neck: Present: supple, normal ROM - Respiratory Respiratory effort: normal Respiratory: bilateral: diminished - Cardiovascular Heart Sounds: Present: S1 & S2. Absent: rub, click - Extremities Extremities: pulses symmetrical, No edema Peripheral Pulses: within normal limits - Abdominal General gastrointestinal: Present: soft, non-tender, non-distended, normal bowel sounds Female genitourinary: Present: normal - Integumentary Integumentary: Present: clear, warm, dry - Musculoskeletal Musculoskeletal: gait normal, strength equal bilaterally - Psychiatric Psychiatric: appropriate mood/affect, intact judgment & insight - Neurologic Neurologic: CNII-XII intact, moves all extremities - Constitutional Vitals: Temp Pulse Resp BP Pulse Ox 98.0 F 68 16 119/77 94 01/02/21 05:18 01/02/21 05:18 01/02/21 05:18 01/02/21 05:18 01/02/21 05:18 General appearance: Present: no acute distress, well-nourished Results - Labs CBC & Chem 7: 01/01/21 04:25 01/02/21 04:55 Labs: Laboratory Last Values WBC 6.9 K/mm3 (4.5-11.0) 01/01/21 04:25 RBC 5.22 M/mm3 (3.65-5.03) H 01/01/21 04:25 Hgb 10.0 gm/dl (10.1-14.3) L 01/01/21 04:25 Hct 33.2 % (30.3-42.9) 01/01/21 04:25 MCV 64 fl (79-97) L 01/01/21 04:25 MCH 19 pg (28-32) L 01/01/21 04:25 MCHC 30 % (30-34) 01/01/21 04:25 RDW 21.2 % (13.2-15.2) H 01/01/21 04:25 Plt Count 282 K/mm3 (140-440) 01/01/21 04:25 Lymph % (Auto) 12.7 % (13.4-35.0) L 01/01/21 04:25 [place] % (Auto) 3.2 % (0.0-7.3) 01/01/21 04:25 Eos % (Auto) 0.0 % (0.0-4.3) 01/01/21 04:25 Baso % (Auto) 0.3 % (0.0-1.8) 01/01/21 04:25 Lymph # (Auto) 0.9 K/mm3 (1.2-5.4) L 01/01/21 04:25 [place] # (Auto) 0.2 K/mm3 (0.0-0.8) 01/01/21 04:25 Eos # (Auto) 0.0 K/mm3 (0.0-0.4) 01/01/21 04:25 Baso # (Auto) 0.0 K/mm3 (0.0-0.1) 01/01/21 04:25 Seg Neutrophils % 83.8 % (40.0-70.0) H 01/01/21 04:25 Seg Neutrophils # 5.7 K/mm3 (1.8-7.7) 01/01/21 04:25 PT 13.0 Sec. (12.2-14.9) 12/31/20 00:04 INR 1.00 (0.87-1.13) 12/31/20 00:04 APTT 28.3 Sec. (24.2-36.6) 12/31/20 00:04 D-Dimer 485.77 ng/mlDDU (0-234) H 12/31/20 00:49 Sodium 138 mmol/L (137-145) 01/02/21 04:55 Potassium 4.4 mmol/L (3.6-5.0) 01/02/21 04:55 Chloride 101.8 mmol/L (98-107) 01/02/21 04:55 Carbon Dioxide 27 mmol/L (22-30) 01/02/21 04:55 Anion Gap 14 mmol/L 01/02/21 04:55 BUN 11 mg/dL (7-17) 01/02/21 04:55 Creatinine 0.6 mg/dL (0.6-1.2) 01/02/21 04:55 Estimated GFR > 60 ml/min 01/02/21 04:55 BUN/Creatinine Ratio 18 % 01/02/21 04:55 Glucose 134 mg/dL (65-100) H 01/02/21 04:55 POC Glucose 141 mg/dL (70-105) H 01/02/21 06:01 Lactic Acid 1.20 mmol/L (0.7-2.0) 12/31/20 00:49 Calcium 7.6 mg/dL (8.4-10.2) L 01/02/21 04:55 Ferritin 42.5 ng/mL (10.0-200.0) 12/31/20 00:49 Total Bilirubin 0.20 mg/dL (0.1-1.2) 01/02/21 04:55 AST 25 units/L (5-40) 01/02/21 04:55 ALT 7 units/L (7-56) 01/02/21 04:55 Alkaline Phosphatase 52 units/L (35-129) 01/02/21 04:55 Lactate Dehydrogenase 286 units/L (91-180) H 12/31/20 00:49 C-Reactive Protein 4.40 mg/dL (0.00-1.30) H 12/31/20 00:49 Total Protein 7.2 g/dL (6.3-8.2) 01/02/21 04:55 Albumin 3.5 g/dL (3.9-5) L 01/02/21 04:55 Albumin/Globulin Ratio 0.9 % 01/02/21 04:55 Lipase 21 units/L (13-60) 12/30/20 22:38 Procalcitonin 0.07 ng/mL (<0.15) 12/31/20 00:49 HCG, Qual Negative (Negative) 12/30/20 22:38 Urine Color Yellow (Yellow) 12/30/20 Unknown Urine Turbidity Slightly-cloudy (Clear) 12/30/20 Unknown Urine pH 6.0 (5.0-7.0) 12/30/20 Unknown Ur Specific [place] 1.054 (1.003-1.030) H 12/30/20 Unknown Urine Protein <15 mg/dl mg/dL (Negative) 12/30/20 Unknown Urine Glucose (UA) Neg mg/dL (Negative) 12/30/20 Unknown Urine Ketones Neg mg/dL (Negative) 12/30/20 Unknown Urine Blood Lg (Negative) 12/30/20 Unknown Urine Nitrite Neg (Negative) 12/30/20 Unknown Urine Bilirubin Neg (Negative) 12/30/20 Unknown Urine Urobilinogen < 2.0 mg/dL (<2.0) 12/30/20 Unknown Ur Leukocyte Esterase Neg (Negative) 12/30/20 Unknown Urine WBC (Auto) 3.0 /HPF (0.0-6.0) 12/30/20 Unknown Urine RBC (Auto) 9.0 /HPF (0.0-6.0) 12/30/20 Unknown U Epithel Cells (Auto) 11.0 /HPF (0-13.0) 12/30/20 Unknown Urine Bacteria (Auto) 1+ /HPF (Negative) 12/30/20 Unknown Coronavirus (PCR) Positive (Negative) A 12/31/20 Unknown Microbiology: Microbiology 12/31/20 00:49 Peripheral/Venous Blood Culture - Preliminary NO GROWTH AFTER 48 HOURS 12/31/20 00:38 Peripheral/Venous Blood Culture - Preliminary NO GROWTH AFTER 48 HOURS Renae/IV: Voiding Method Toilet Active Medications - Current Medications Current Medications: Generic Name Dose Route Start Last Admin Trade Name Wesleyq PRN Reason Stop Dose Admin Acetaminophen 650 mg 12/31/20 21:55 12/31/20 22:07 Acetaminophen 325 Mg Tab PO 650 mg Q6H PRN Administration Pain, Mild (1-3) Ascorbic Acid 1,000 mg 01/01/21 11:00 01/02/21 09:17 Ascorbic Acid 500 Mg Tab PO 1,000 mg BID RAO Administration Cholecalciferol 5,000 unit 01/01/21 11:00 01/02/21 09:17 Cholecalciferol (Vit D3) 5,000 Unit Tab PO 5,000 unit DAILY RAO Administration Dexamethasone 6 mg 01/01/21 12:00 01/02/21 09:16 Dexamethasone 4 Mg Tab PO 01/09/21 11:59 6 mg DAILY RAO Administration Famotidine 20 mg 12/31/20 10:00 01/02/21 09:17 Famotidine 20 Mg Tab PO 20 mg BID RAO Administration Heparin Sodium (Porcine) 5,000 unit 12/31/20 06:00 01/02/21 05:11 Heparin 5,000 Unit/1 Ml Vial SUB-Q 5,000 unit Q8HR RAO Administration REMDESIVIR 100 mg/ Sodium 250 mls @ 500 mls/hr 01/02/21 21:00 Chloride IV 01/05/21 21:29 Q24HR@2100 RAO Ondansetron HCl 4 mg 12/31/20 02:41 Ondansetron 4 Mg/2 Ml Inj IV Q8H PRN Nausea And Vomiting Sertraline HCl 100 mg 12/31/20 11:00 01/02/21 09:18 Sertraline 100 Mg Tab PO 100 mg QDAY RAO Administration Sodium Chloride 50 ml 01/01/21 10:00 01/01/21 09:16 Sodium Chloride 0.9% 50 Ml Ivpb IV 01/05/21 21:01 50 ml Q24HR@2100 RAO Administration Zinc Sulfate 220 mg 01/01/21 11:00 01/02/21 09:18 Zinc Sulfate 220 Mg Cap PO 220 mg QDAY RAO Administration
--- NOTE | 2021-01-02 15:23 | Progress Note ---
Assessment and Plan Cultures: Blood culture pending COVID-19 positive A/P: 21-year-old female past medical history morbid obesity admitted with bilateral pneumonia #Acute hypoxic respiratory failure: secondary to COVID. On 3L NC. #COVID-19 #Morbid obesity Recs: -Can continue dexamethasone to complete 10 days. -Started Remdesivir, day 2 of 5. Monitor renal and hepatic function. -Obtain inflammatory markers every 48-72 hours -Anticoagulation per hospital protocol -Proning as able. Thank you for the consult, we will continue to follow. Yajaira Whitaker MD [facility] ([facility]) O: [phone] F: [phone] Subjective Date of service: 01/02/21 Interval history: Afebrile, normal white count. Remains on 3 L nasal cannula. Objective - Exam Narrative Exam: Physical exam deferred due to PPE conservation strategy. Please refer to primary team's note. - Constitutional Vitals: Vital Signs Temp Pulse Resp BP Pulse Ox 98.2 F 68 22 127/90 88 01/02/21 11:05 01/02/21 11:05 01/02/21 11:05 01/02/21 11:05 01/02/21 13:48 Temperature -Last 24 Hours Temperature 98.2 F Temperature 98.0 F Temperature 98.3 F Temperature 99.9 F - Labs CBC & Chem 7: 01/01/21 04:25 01/02/21 04:55 Labs: Abnormal lab results 01/02/21 01/02/21 Range/Units 04:55 06:01 Glucose 134 H (65-100) mg/dL POC Glucose 141 H (70-105) mg/dL Calcium 7.6 L (8.4-10.2) mg/dL Albumin 3.5 L (3.9-5) g/dL
[2021-01-02] MEDS ORDERED: REMDESIVIR 100 MG in SODIUM CHLORIDE 0.9% 250ML 250 ML IV SCH (21:00)
[2021-01-02] MEDS: REMDESIVIR 100 MG in SODIUM CHLORIDE 0.9% 250ML 250 ML IV SCH (22:16)
[2021-01-02] MEDS: SODIUM CHLORIDE 0.9% 50 ML IVPB IV SCH (22:20)
[2021-01-02] MEDS ORDERED: LIP THERAPY VASELINE TP PRN (23:57)
[2021-01-03] MEDS: HEPARIN 5,000 UNIT/1 ML VIAL SUB-Q SCH ×3 (05:46→21:31)
[2021-01-03 07:32] LABS: Alanine Aminotransferase 23 units/L (7-56); Albumin 3.5 g/dL (3.9-5); BUN/Creatinine Ratio 25; Blood Urea Nitrogen 15 mg/dL (7-17); Calcium 7.9 mg/dL (8.4-10.2); Hemolysis Index 0
--- NOTE | 2021-01-03 07:33 | Progress Note ---
Assessment and Plan Assessment and plan: 30-year-old female with no significant past medical history was brought to the emergency room because of 1 week history fever, vomiting, diarrhea, fatigue. Patient also complaining of shortness of breath 4 days ago. She reports associated slight cough, body aches, and slight loss of smell. Patient states she became dizzy and passed out 2 days ago. Patient states she was tested for COVID-19 2 weeks ago because her was feeling sick. Patient states 2 weeks ago they both tested negative. Patient has not been tested again since the onset of her symptoms. She states her is no longer symptomatic. She reports no known contact with anyone who has tested positive for COVID-19. In the emergency room patient chest x-ray shows bilateral pneumonia 01/01: Continue supportive care, now on Dexamethazone, Continue remdesivir, Vitamin C, zinc, vitamin D, wean oxygen as tolerated. IS x10 daily. 01/02: Patient clinically improving. No further nausea vomiting or diarrhea noted today. She is currently on remdesivir as steroids and will continue the same. We will recheck oxygen saturation and possible home O2 eval for anticipation for discharge tomorrow. 01/03: Patient still with Hypoxia, 88% on room air yesterday, will continue current management. Today will be Day 3/ for Remdesivir. (1) 2019 novel coronavirus infection Current Visit: Yes Status: Acute Plan to address problem: Admit the patient to the medical floor telemetry. Put the patient on isolation. Rocephin 1 g IV daily and Zithromax 500 mg IV daily. DuoNeb by nebulizer every 4 hours as needed. Decadron 6 mg IV daily. Will consult ID for further evaluation and treatment. We will follow the Covid inflammatory marker. Blood cultures sputum culture. Recheck CBC BMP in the morning. Heparin 5000 units subcu every 8 hours for DVT prophylaxis and Pepcid 20 mg p.o. twice daily for GI prophylaxis. Patient is a full code (2) Pneumonia Current Visit: Yes Status: Acute Plan to address problem: Oxygen by nasal cannula 3 L/min. Rocephin 1 g IV daily and Zithromax 500 mg IV daily. DuoNeb by nebulizer every 4 hours as needed. Decadron 6 mg IV daily. Will consult ID for further evaluation and treatment. We will follow the Covid inflammatory marker. Blood cultures sputum culture. Recheck CBC BMP in the morning. (3) Nausea vomiting and diarrhea Current Visit: Yes Status: Acute Plan to address problem: Pepcid 20 mg p.o. twice daily. Zofran 4 mg IV every 6 hours as needed. We will monitor the patient closely. (4) Morbid Obesity (5) chronic dizziness (6) DVT prophylaxis Current Visit: Yes Status: Acute Plan to address problem: Heparin 5000 units subcu every 8 hours for DVT prophylaxis. History Interval history: Patient seen and examined, no new complaints today. Hospitalist Physical - Physical exam Narrative exam: General appearance: Present: no acute distress, well-nourished. Morbid obesity - EENT Eyes: Present: PERRL ENT: hearing intact, clear oral mucosa - Neck Neck: Present: supple, normal ROM - Respiratory Respiratory effort: normal Respiratory: bilateral: diminished - Cardiovascular Heart Sounds: Present: S1 & S2. Absent: rub, click - Extremities Extremities: pulses symmetrical, No edema Peripheral Pulses: within normal limits - Abdominal General gastrointestinal: Present: soft, non-tender, non-distended, normal bowel sounds Female genitourinary: Present: normal - Integumentary Integumentary: Present: clear, warm, dry - Musculoskeletal Musculoskeletal: gait normal, strength equal bilaterally - Psychiatric Psychiatric: appropriate mood/affect, intact judgment & insight - Neurologic Neurologic: CNII-XII intact, moves all extremities - Constitutional Vitals: Temp Pulse Resp BP Pulse Ox 98.5 F 59 L 19 112/70 91 01/03/21 05:01 01/03/21 05:01 01/03/21 05:01 01/03/21 05:01 01/03/21 05:01 General appearance: Present: no acute distress, well-nourished Results - Labs CBC & Chem 7: 01/01/21 04:25 01/03/21 04:34 Labs: Laboratory Last Values WBC 6.9 K/mm3 (4.5-11.0) 01/01/21 04:25 RBC 5.22 M/mm3 (3.65-5.03) H 01/01/21 04:25 Hgb 10.0 gm/dl (10.1-14.3) L 01/01/21 04:25 Hct 33.2 % (30.3-42.9) 01/01/21 04:25 MCV 64 fl (79-97) L 01/01/21 04:25 MCH 19 pg (28-32) L 01/01/21 04:25 MCHC 30 % (30-34) 01/01/21 04:25 RDW 21.2 % (13.2-15.2) H 01/01/21 04:25 Plt Count 282 K/mm3 (140-440) 01/01/21 04:25 Lymph % (Auto) 12.7 % (13.4-35.0) L 01/01/21 04:25 [place] % (Auto) 3.2 % (0.0-7.3) 01/01/21 04:25 Eos % (Auto) 0.0 % (0.0-4.3) 01/01/21 04:25 Baso % (Auto) 0.3 % (0.0-1.8) 01/01/21 04:25 Lymph # (Auto) 0.9 K/mm3 (1.2-5.4) L 01/01/21 04:25 [place] # (Auto) 0.2 K/mm3 (0.0-0.8) 01/01/21 04:25 Eos # (Auto) 0.0 K/mm3 (0.0-0.4) 01/01/21 04:25 Baso # (Auto) 0.0 K/mm3 (0.0-0.1) 01/01/21 04:25 Seg Neutrophils % 83.8 % (40.0-70.0) H 01/01/21 04:25 Seg Neutrophils # 5.7 K/mm3 (1.8-7.7) 01/01/21 04:25 PT 13.0 Sec. (12.2-14.9) 12/31/20 00:04 INR 1.00 (0.87-1.13) 12/31/20 00:04 APTT 28.3 Sec. (24.2-36.6) 12/31/20 00:04 D-Dimer 485.77 ng/mlDDU (0-234) H 12/31/20 00:49 Sodium 138 mmol/L (137-145) 01/02/21 04:55 Potassium 4.4 mmol/L (3.6-5.0) 01/02/21 04:55 Chloride 101.8 mmol/L (98-107) 01/02/21 04:55 Carbon Dioxide 27 mmol/L (22-30) 01/02/21 04:55 Anion Gap 14 mmol/L 01/02/21 04:55 BUN 11 mg/dL (7-17) 01/02/21 04:55 Creatinine 0.6 mg/dL (0.6-1.2) 01/02/21 04:55 Estimated GFR > 60 ml/min 01/02/21 04:55 BUN/Creatinine Ratio 18 % 01/02/21 04:55 Glucose 134 mg/dL (65-100) H 01/02/21 04:55 POC Glucose 141 mg/dL (70-105) H 01/02/21 06:01 Lactic Acid 1.20 mmol/L (0.7-2.0) 12/31/20 00:49 Calcium 7.6 mg/dL (8.4-10.2) L 01/02/21 04:55 Ferritin 42.5 ng/mL (10.0-200.0) 12/31/20 00:49 Total Bilirubin 0.20 mg/dL (0.1-1.2) 01/02/21 04:55 AST 25 units/L (5-40) 01/02/21 04:55 ALT 7 units/L (7-56) 01/02/21 04:55 Alkaline Phosphatase 52 units/L (35-129) 01/02/21 04:55 Lactate Dehydrogenase 286 units/L (91-180) H 12/31/20 00:49 C-Reactive Protein 4.40 mg/dL (0.00-1.30) H 12/31/20 00:49 Total Protein 7.2 g/dL (6.3-8.2) 01/02/21 04:55 Albumin 3.5 g/dL (3.9-5) L 01/02/21 04:55 Albumin/Globulin Ratio 0.9 % 01/03/21 04:34 Lipase 21 units/L (13-60) 12/30/20 22:38 Procalcitonin 0.07 ng/mL (<0.15) 12/31/20 00:49 HCG, Qual Negative (Negative) 12/30/20 22:38 Urine Color Yellow (Yellow) 12/30/20 Unknown Urine Turbidity Slightly-cloudy (Clear) 12/30/20 Unknown Urine pH 6.0 (5.0-7.0) 12/30/20 Unknown Ur Specific [place] 1.054 (1.003-1.030) H 12/30/20 Unknown Urine Protein <15 mg/dl mg/dL (Negative) 12/30/20 Unknown Urine Glucose (UA) Neg mg/dL (Negative) 12/30/20 Unknown Urine Ketones Neg mg/dL (Negative) 12/30/20 Unknown Urine Blood Lg (Negative) 12/30/20 Unknown Urine Nitrite Neg (Negative) 12/30/20 Unknown Urine Bilirubin Neg (Negative) 12/30/20 Unknown Urine Urobilinogen < 2.0 mg/dL (<2.0) 12/30/20 Unknown Ur Leukocyte Esterase Neg (Negative) 12/30/20 Unknown Urine WBC (Auto) 3.0 /HPF (0.0-6.0) 12/30/20 Unknown Urine RBC (Auto) 9.0 /HPF (0.0-6.0) 12/30/20 Unknown U Epithel Cells (Auto) 11.0 /HPF (0-13.0) 12/30/20 Unknown Urine Bacteria (Auto) 1+ /HPF (Negative) 12/30/20 Unknown Coronavirus (PCR) Positive (Negative) A 12/31/20 Unknown Microbiology: Microbiology 12/31/20 00:49 Peripheral/Venous Blood Culture - Preliminary NO GROWTH AFTER 72 HOURS 12/31/20 00:38 Peripheral/Venous Blood Culture - Preliminary NO GROWTH AFTER 72 HOURS Renae/IV: Voiding Method Toilet Active Medications - Current Medications Current Medications: Generic Name Dose Route Start Last Admin Trade Name Freq PRN Reason Stop Dose Admin Acetaminophen 650 mg 12/31/20 21:55 12/31/20 22:07 Acetaminophen 325 Mg Tab PO 650 mg Q6H PRN Administration Pain, Mild (1-3) Ascorbic Acid 1,000 mg 01/01/21 11:00 01/02/21 22:20 Ascorbic Acid 500 Mg Tab PO 1,000 mg BID RAO Administration Cholecalciferol 5,000 unit 01/01/21 11:00 01/02/21 09:17 Cholecalciferol (Vit D3) 5,000 Unit Tab PO 5,000 unit DAILY RAO Administration Dexamethasone 6 mg 01/01/21 12:00 01/02/21 09:16 Dexamethasone 4 Mg Tab PO 01/09/21 11:59 6 mg DAILY RAO Administration Famotidine 20 mg 12/31/20 10:00 01/02/21 22:20 Famotidine 20 Mg Tab PO 20 mg BID RAO Administration Heparin Sodium (Porcine) 5,000 unit 12/31/20 06:00 01/03/21 05:46 Heparin 5,000 Unit/1 Ml Vial SUB-Q 5,000 unit Q8HR RAO Administration Hydrophilic Ointment 1 applic 01/02/21 23:57 01/03/21 00:23 Lip Therapy Vaseline TP 1 applic DIRECT PRN Administration Dry Lips REMDESIVIR 100 mg/ Sodium 250 mls @ 500 mls/hr 01/02/21 21:00 01/02/21 22:16 Chloride IV 01/05/21 21:29 500 mls/hr Q24HR@2100 RAO Administration Ondansetron HCl 4 mg 12/31/20 02:41 Ondansetron 4 Mg/2 Ml Inj IV Q8H PRN Nausea And Vomiting Sertraline HCl 100 mg 12/31/20 11:00 01/02/21 09:18 Sertraline 100 Mg Tab PO 100 mg QDAY RAO Administration Sodium Chloride 50 ml 01/01/21 10:00 01/02/21 22:20 Sodium Chloride 0.9% 50 Ml Ivpb IV 01/05/21 21:01 50 ml Q24HR@2100 RAO Administration Zinc Sulfate 220 mg 01/01/21 11:00 01/02/21 09:18 Zinc Sulfate 220 Mg Cap PO 220 mg QDAY RAO Administration
[2021-01-03] MEDS: DEXAMETHASONE 4 MG TAB PO SCH (09:51)
[2021-01-03] MEDS: FAMOTIDINE 20 MG TAB PO SCH ×2 (09:51→21:31)
[2021-01-03] MEDS: ZINC SULFATE 220 MG CAP PO SCH (09:51)
[2021-01-03] MEDS: CHOLECALCIFEROL (VIT D3) 5,000 UNIT TAB PO SCH (09:51)
[2021-01-03] MEDS: ASCORBIC ACID 500 MG TAB PO SCH ×2 (09:51→21:31)
[2021-01-03] MEDS: SERTRALINE 100 MG TAB PO SCH (09:51)
--- NOTE | 2021-01-03 13:54 | Progress Note ---
Assessment and Plan Cultures: Blood culture pending COVID-19 positive A/P: 21-year-old female past medical history morbid obesity admitted with bilateral pneumonia #Acute hypoxic respiratory failure: secondary to COVID. On 2L NC. #COVID-19 #Morbid obesity Recs: -Can continue dexamethasone to complete 10 days. -Started Remdesivir, day 3 of 5. Monitor renal and hepatic function. -Obtain inflammatory markers every 48-72 hours -Anticoagulation per hospital protocol -Proning as able. Thank you for the consult, we will continue to follow. Yajaira Whitaker MD [facility] ([facility]) O: [phone] F: [phone] Subjective Date of service: 01/03/21 Interval history: Afebrile, no acute concerns. On 2L NC Objective - Exam Narrative Exam: Physical exam deferred due to PPE conservation strategy. Please refer to primary team's note. - Constitutional Vitals: Vital Signs Temp Pulse Resp BP Pulse Ox 98.2 F 77 22 132/87 97 01/03/21 11:02 01/03/21 11:02 01/03/21 11:02 01/03/21 11:02 01/03/21 11:02 Temperature -Last 24 Hours Temperature 98.2 F Temperature 98.5 F Temperature 99.0 F Temperature 98.8 F - Labs CBC & Chem 7: 01/01/21 04:25 01/03/21 04:34 Labs: Abnormal lab results 01/03/21 Range/Units 04:34 Glucose 104 H (65-100) mg/dL Calcium 7.9 L (8.4-10.2) mg/dL AST 41 H (5-40) units/L Albumin 3.5 L (3.9-5) g/dL
[2021-01-03] MEDS: REMDESIVIR 100 MG in SODIUM CHLORIDE 0.9% 250ML 250 ML IV SCH (21:30)
[2021-01-03] MEDS: SODIUM CHLORIDE 0.9% 50 ML IVPB IV SCH (21:31)
[2021-01-04] MEDS: HEPARIN 5,000 UNIT/1 ML VIAL SUB-Q SCH (05:16)
[2021-01-04 06:04] LABS: Alanine Aminotransferase 32 units/L (7-56); Albumin 3.6 g/dL (3.9-5); Blood Urea Nitrogen 14 mg/dL (7-17); Calcium 7.7 mg/dL (8.4-10.2); Hemolysis Index 0
[2021-01-04 06:17] LABS: BUN/Creatinine Ratio 23
--- NOTE | 2021-01-04 09:37 | Discharge Summary ---
Providers - Providers Date of Admission: 12/31/20 16:04 Attending physician: TERELL MONCADA MD 12/31/20 02:37 Consult to Physician [CONS] Routine Comment: Consulting Provider: KARLEE DIXON Physician Instructions: Reason For Exam: Covid Primary care physician: TUB WASHER Hospitalization Reason for admission: covid 19 Condition: Stable Hospital course: 30-year-old female with no significant past medical history was brought to the emergency room because of 1 week history fever, vomiting, diarrhea, fatigue. Patient also complaining of shortness of breath 4 days ago. She reports associated slight cough, body aches, and slight loss of smell. Patient states she became dizzy and passed out 2 days ago. Patient states she was tested for COVID-19 2 weeks ago because her was feeling sick. Patient states 2 weeks ago they both tested negative. Patient has not been tested again since the onset of her symptoms. She states her is no longer symptomatic. She reports no known contact with anyone who has tested positive for COVID-19. In the emergency room patient chest x-ray shows bilateral pneumonia 01/01: Continue supportive care, now on Dexamethazone, Continue remdesivir, Vitamin C, zinc, vitamin D, wean oxygen as tolerated. IS x10 daily. 01/02: Patient clinically improving. No further nausea vomiting or diarrhea noted today. She is currently on remdesivir as steroids and will continue the same. We will recheck oxygen saturation and possible home O2 eval for anticipation for discharge tomorrow. 01/03: Patient still with Hypoxia, 88% on room air yesterday, will continue current management. Today will be Day 3/5 for Remdesivir. 01/04: Patient seen and examined, much improved. minimal oxygen use but no exertional dyspnea. Will discharge. counselling given to the patient. (1) 2019 novel coronavirus infection Current Visit: Yes Status: Acute Plan to address problem: Admit the patient to the medical floor telemetry. Put the patient on isolation. Rocephin 1 g IV daily and Zithromax 500 mg IV daily. DuoNeb by nebulizer every 4 hours as needed. Decadron 6 mg IV daily. Will consult ID for further evaluation and treatment. We will follow the Covid inflammatory marker. Blood cultures sputum culture. Recheck CBC BMP in the morning. Heparin 5000 units subcu every 8 hours for DVT prophylaxis and Pepcid 20 mg p.o. twice daily for GI prophylaxis. Patient is a full code (2) Pneumonia secondary to covid 19 Current Visit: Yes Status: Acute Plan to address problem: Oxygen by nasal cannula 3 L/min. Rocephin 1 g IV daily and Zithromax 500 mg IV daily. DuoNeb by nebulizer every 4 hours as needed. Decadron 6 mg IV daily. Will consult ID for further evaluation and treatment. We will follow the Covid inflammatory marker. Blood cultures sputum culture. Recheck CBC BMP in the morning. (3) Nausea vomiting and diarrhea Current Visit: Yes Status: Acute Plan to address problem: Pepcid 20 mg p.o. twice daily. Zofran 4 mg IV every 6 hours as needed. We will monitor the patient closely. (4) Morbid Obesity (5) chronic dizziness Disposition: DC-01 TO HOME OR SELFCARE Time spent for discharge: 35 mins Core Measure Documentation - Palliative Care Palliative Care/ Comfort Measures: Not Applicable - Core Measures Any of the following diagnoses?: none Exam - Physical Exam Narrative exam: General appearance: Present: no acute distress, well-nourished. Morbid obesity - EENT Eyes: Present: PERRL ENT: hearing intact, clear oral mucosa - Neck Neck: Present: supple, normal ROM - Respiratory Respiratory effort: normal Respiratory: bilateral: diminished - Cardiovascular Heart Sounds: Present: S1 & S2. Absent: rub, click - Extremities Extremities: pulses symmetrical, No edema Peripheral Pulses: within normal limits - Abdominal General gastrointestinal: Present: soft, non-tender, non-distended, normal bowel sounds Female genitourinary: Present: normal - Integumentary Integumentary: Present: clear, warm, dry - Musculoskeletal Musculoskeletal: gait normal, strength equal bilaterally - Psychiatric Psychiatric: appropriate mood/affect, intact judgment & insight - Neurologic Neurologic: CNII-XII intact, moves all extremities - Constitutional Vitals: Temp Pulse Resp BP Pulse Ox 97.9 F 63 18 116/56 99 01/04/21 03:53 01/04/21 03:53 01/04/21 03:53 01/04/21 03:53 01/04/21 04:11 Plan Activity: advance as tolerated, fall precautions Diet: low fat Special Instructions: record daily weights, record daily BP diary Follow up with: PRIMARY CAREMD [Primary Care Provider] - 3-5 Days Prescriptions: dexAMETHasone [Dexamethasone] 6 mg PO DAILY #6 tablet Ascorbic Acid [Vitamin C] 1,000 mg PO BID #60 tablet Cholecalciferol (Vitamin D3) [Vitamin D3] 5,000 unit PO DAILY #30 tablet Zinc Sulfate 220 mg PO QDAY #30 capsule
[2021-01-04] MEDS: FAMOTIDINE 20 MG TAB PO SCH (10:25)
[2021-01-04] MEDS: SERTRALINE 100 MG TAB PO SCH (10:25)
[2021-01-04] MEDS: DEXAMETHASONE 4 MG TAB PO SCH (10:25)
[2021-01-04] MEDS: ZINC SULFATE 220 MG CAP PO SCH (10:25)
[2021-01-04] MEDS: ASCORBIC ACID 500 MG TAB PO SCH (10:25)
[2021-01-04] MEDS: CHOLECALCIFEROL (VIT D3) 5,000 UNIT TAB PO SCH (10:26)
--- NOTE | 2021-01-04 12:22 | Progress Note ---
Assessment and Plan Cultures: Blood culture pending COVID-19 positive A/P: 21-year-old female past medical history morbid obesity admitted with bilateral pneumonia #Acute hypoxic respiratory failure: secondary to COVID. On 3L NC. #COVID-19 #Morbid obesity Recs: -Can continue dexamethasone to complete 10 days. -Started Remdesivir, day 4 of 5. Monitor renal and hepatic function. -Obtain inflammatory markers every 48-72 hours -Anticoagulation per hospital protocol -Proning as able. Thank you for the consult, we will continue to follow. Yajaira Whitaker MD [facility] ([facility]) O: [phone] F: [phone] Subjective Date of service: 01/04/21 Interval history: Afebrile, normal white count. Objective - Exam Narrative Exam: Physical exam deferred due to PPE conservation strategy. Please refer to primary team's note. - Constitutional Vitals: Vital Signs Temp Pulse Resp BP Pulse Ox 97.9 F 63 18 116/56 99 01/04/21 03:53 01/04/21 03:53 01/04/21 03:53 01/04/21 03:53 01/04/21 04:11 Temperature -Last 24 Hours Temperature 97.9 F Temperature 97.9 F Temperature 98.8 F - Labs CBC & Chem 7: 01/01/21 04:25 01/04/21 04:43 Labs: Abnormal lab results 01/04/21 Range/Units 04:43 Sodium 135 L (137-145) mmol/L Glucose 104 H (65-100) mg/dL Calcium 7.7 L (8.4-10.2) mg/dL Albumin 3.6 L (3.9-5) g/dL
[2021-01-04 13:23] VITALS: BP 112/63
== END 2021-01-04 13:14 | disposition home or self-care (01) | DRG 871 ==
LOC: ED 21:47 → 3A 12-31 01:58 → OBSVTOIN 12-31 16:04
PROVIDERS: ADMIT Hospitalist; ATTEND Internal Medicine
PROC: XW033E5 Introduction of Remdesivir Anti-infective into Peripheral Vein, Percutaneous Approach, New Technology Group 5 (ICD-10-PCS; principal; 2021-01-01)
DX: A41.89 Other specified sepsis (principal); J96.01 Acute respiratory failure with hypoxia; U07.1 COVID-19; J12.82 Pneumonia due to coronavirus disease 2019; Z68.41 Body mass index [BMI] 40.0-44.9, adult; A41.9 Sepsis, unspecified organism; E66.01 Morbid (severe) obesity due to excess calories; R42 Dizziness and giddiness
CPT/HCPCS: 36415; 71045; 71275; 80048; 80053; 81001; 82140; 82728; 82947; 82962; 83615; 83690; 84145; 84703; 85025; 85379; 85610; 85730; 86140; 87040; 93005; 93970; 94760; 96365; G0378; J0456; J0696; J1100; J1644; J8540; U0003